=== PATIENT | male | born 1995 | race African-American/Black ===

== ENCOUNTER 2017-05-19 18:14 | Emergency (ER) | payer MEDICAID ==
[~2017-05-19] VITALS: Ht 182.9 cm; Wt 97.5 kg
[~2017-05-19 18:14] MED LIST: AMOXICILLIN500 MG ORAL; CYCLOBENZAPRINE10 MG ORAL; DEBROX15 M1 OT; IBUPROFEN600 MG ORAL; NAPROSYN500 M1 ORAL; NAPROSYN500 M1 PO; NKM
--- NOTE | 2017-05-19 18:37 | Emergency Room Report ---
History of Present Illness General Chief Complaint: Upper Respiratory Illness Source: Patient Present Illness HPI 22-year-old male presents to the emergency department complaining of 5/10 in severity sore throat, persistent dry cough, intermittent fevers and chills that her subjective x2 days. Patient denies having his flu vaccination this year however he is up-to-date with all of her vaccinations. Patient denies recent travel or ill contacts .Denies sore throat, ear pain, high fevers, lethargy, neck pain/stiffness, irritability, photophobia dehydration, N/V/D. Denies Cp, Palpitations, LOC, AMS, seizures, paresthesias, or changes in Hearing or vision , no Sudden severe IBARRA. He also reports she rash to the bilateral medial knees and thighs that presented several days prior to URI symptoms. Patient denies fevers or chills he reports he applied a cream that his mother gave him and symptoms almost completely resolved. Denies lesions elsewhere on the body. Does report new Pants that are somewhat tight but he also did not wash prior to wearing. Denies lesions/rashes elsewhere on the body. Denies new medications or body washes or creams. Denies swelling of the lips, tongue , throat or airway. Denies wheezing, or shortness of breath. Denies recent travel, recent illness or ill contacts. denies blisters, oral lesions, or sloughing of the skin. Allergies: Coded Allergies: No Known Allergies (Unverified , 08/10/14) Patient History Past Medical History: see triage record Past Surgical History: none Pertinent Family History: none Reviewed Nursing Documentation: PMH: Agreed, PSxH: Agreed Nursing Documentation-PM Past Medical History: No Stated History Review of Systems All Other Systems: negative except mentioned in HPI Physical Exam Vital Signs Date Time Temp Pulse Resp B/P (MAP) Pulse Ox O2 Delivery O2 Flow Rate FiO2 05/19/17 18:17 98.1 67 16 124/83 96 Room Air Sp02 EP Interpretation: reviewed, normal General Appearance: no apparent distress, alert, GCS 15, non-toxic Head: normocephalic, atraumatic ENT: hearing grossly normal, normal voice, TMs + canals normal, uvula midline, nasal congestion, pharyngeal erythema - no exudates Neck: full range of motion Respiratory: chest non-tender, lungs clear, normal breath sounds, speaking full sentences Cardiovascular #1: regular rate, rhythm Musculoskeletal: back normal, gait/station normal, normal range of motion, non- tender Neurologic: alert, oriented x3, responsive, motor strength/tone normal, sensory intact, speech normal, grossly normal Psychiatric: judgement/insight normal Skin: normal color, warm/dry, well hydrated, rash - Some excoriations noted to the medial thighs however no erythema, no swelling no blisters or vesicles . Lymphatic: no adenopathy Medical Decision Making PA Attestation Dr. card is my supervising Physician whom patient management has been discussed with. Diagnostic Impression: Primary Impression: Upper respiratory infection Qualified Codes: J06.9 - Acute upper respiratory infection, unspecified Additional Impression: Dermatitis ER Course 22-year-old male presents to the emergency department complaining of 5/10 in severity sore throat, persistent dry cough, intermittent fevers and chills that her subjective x2 days. Patient denies having his flu vaccination this year however he is up-to-date with all of her vaccinations. Patient denies recent travel or ill contacts .Denies sore throat, ear pain, high fevers, lethargy, neck pain/stiffness, irritability, photophobia dehydration, N/V/D. Denies Cp, Palpitations, LOC, AMS, seizures, paresthesias, or changes in Hearing or vision , no Sudden severe IBARRA. He also reports she rash to the bilateral medial knees and thighs that presented several days prior to URI symptoms. Patient denies fevers or chills he reports he applied a cream that his mother gave him and symptoms almost completely resolved. Denies lesions elsewhere on the body. Does report new Pants that are somewhat tight but he also did not wash prior to wearing. Denies lesions/rashes elsewhere on the body. Denies new medications or body washes or creams. Denies swelling of the lips, tongue , throat or airway. Denies wheezing, or shortness of breath. Denies recent travel, recent illness or ill contacts. denies blisters, oral lesions, or sloughing of the skin. Ddx considered but are not limited to URI, pneumonia, PE, strep pharyngitis, meningitis, dermatitis, tinea Vital signs: Pt. is afebrile, the remaining VS are WNL H&PE are most consistent with URI- no meningeal signs, oropharynx is not involved, no evidence of bacterial infection at this time. - Some excoriations noted to the medial thighs however no erythema, no swelling no blisters or vesicles I suspect rash was due to some form of dermatitis.. ORDERS: none required at this time, the diagnosis is clinical ED INTERVENTIONS: None required at this time. --PT. EDUCATION: Discussed antibiotic resistance with inappropriate prescribing of antibiotics for viral illnesses. Discussed signs and symptoms to indicate viral illness versus bacterial illness. DISCHARGE: At this time pt. is stable for d/c to home. Will provide printed patient care instructions, and any necessary prescriptions. Care plan and follow up instructions have been discussed with the patient prior to discharge. Last Vital Signs Date Time Temp Pulse Resp B/P (MAP) Pulse Ox O2 Delivery O2 Flow Rate FiO2 05/19/17 18:17 98.1 67 16 124/83 96 Room Air Disposition: HOME, SELF-CARE Condition: Stable Scripts Diphenhydramine Hcl (BENADRYL ALLERGY) 25 Mg Tablet 25 MG PO Q6HR, #20 TAB Prov: Ophelia Gorman 05/19/17 Hydrocortisone (Hydrocortisone Cream 2.5%) Y Cream.appl 1 APPLIC TP BID, #28.3 GM Prov: Ophelia Gorman 05/19/17 Benzonatate* (TESSALON PERLE*) 100 Mg Capsule 100 MG ORAL THREE TIMES A DAY, #20 PERLE Prov: Ophelia Gorman 05/19/17 Codeine/Promethazine Hcl* (PROMETHAZINE-CODEINE SYRUP*) 118 Ml Syrup 5 ML ORAL Q6H Y for For Cough, #120 ML 0 Refills Prov: Ophelia Gorman 05/19/17 Departure Forms: Return to School Return to School On: May 20, 2017 School Release Restrictions: None Other School Release Restrictions: please excuse for 05/18/17 Return to Full Activity: May 20, 2017 Patient Instructions: Upper Respiratory Infection, Adult Additional Instructions: Take medications as directed. Follow up with a Primary Care Provider in 3-5 days, even if your symptoms have resolved. --Please review list of primary care clinics, if you do not already have a primary care provider Return sooner to ED if new symptoms occur, or current symptoms become worse. Do not drink alcohol, drive, or operate heavy machinery while taking Cough Syrup as this may cause drowsiness. - Please note that this Emergency Department Report was dictated using [employer] business manager technology software, occasionally this can lead to erroneous entry secondary to interpretation by the dictation equipment. Ophelia Gorman May 19, 2017 18:37
[2017-05-19 18:47] VITALS: BP 124/83
[2017-05-19] MEDS ORDERED: HYDROCORTISONE30 G2 TP (18:57)
[2017-05-19] MEDS ORDERED: BENADRYL ALLERG25 M1 PO (18:57)
[2017-05-19] MEDS ORDERED: TESSALON PERLE100 MG ORAL (18:57)
[2017-05-19] MEDS ORDERED: PROMETHAZINE-C118 M1 ORAL (18:57)
[2017-05-19 19:01] VITALS: BP 124/83
== END 2017-05-19 19:08 | disposition home or self-care (01) ==
LOC: EMR 18:52
DX: J06.9 Acute upper respiratory infection, unspecified (principal); L30.9 Dermatitis, unspecified
CPT/HCPCS: 99283

== ENCOUNTER 2018-01-05 23:54 | Emergency (ER) | payer MEDICAID ==
[~2018-01-05] VITALS: Ht 185.4 cm; Wt 93.4 kg
[~2018-01-05 23:54] MED LIST changes: +BENADRYL ALLERG25 M1 PO; +HYDROCORTISONE30 G2 TP; +PROMETHAZINE-C118 M1 ORAL; +TESSALON PERLE100 MG ORAL
[2018-01-06] MEDS ORDERED: IBUPROFEN600 MG ORAL (00:50)
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
[2018-01-06 00:55] VITALS: BP 132/84
[2018-01-06 00:57] VITALS: BP 132/68
== END 2018-01-06 00:57 | disposition home or self-care (01) ==
LOC: EMR 01-06 00:18
DX: S16.1XXA Strain of muscle, fascia and tendon at neck level, initial encounter (principal); S80.01XA Contusion of right knee, initial encounter; S50.311A Abrasion of right elbow, initial encounter; M54.9 Dorsalgia, unspecified; V43.62XA Car passenger injured in collision with other type car in traffic accident, initial encounter; Y92.410 Unspecified street and highway as the place of occurrence of the external cause
CPT/HCPCS: 99283

== ENCOUNTER 2019-03-08 18:34 | Emergency (ER) | payer MEDICAID ==
[~2019-03-08] VITALS: Ht 185.4 cm; Wt 95.3 kg
[2019-03-08] MEDS ORDERED: NKM (18:40)
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
[2019-03-08 18:51] VITALS: BP 147/102
--- NOTE | 2019-03-08 18:53 | NUR ---
ED Nurse Note: ERMD at bedside
--- NOTE | 2019-03-08 19:09 | NUR ---
HAND-OFF: Report given to MAUDE Bryan.
[2019-03-08] MEDS ORDERED: IBUPROFEN600 MG ORAL (19:11)
[2019-03-08] MEDS ORDERED: LIDODERM700 M1 TOPIC (19:11)
[2019-03-08] MEDS ORDERED: ROBAXIN-750750 MG PO (19:11)
[2019-03-08 19:19] VITALS: BP 147/102
--- NOTE | 2019-03-08 19:20 | NUR ---
ED Nurse Note: Pt cleared by health care Provider for discharge. DC instructions/prescription was given and explained to pt and verbalized understanding of teachings. All medical deviecs such as ID band removed. Pt is AAO x4, ambulatory and left with all personal belongings.
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
== END 2019-03-08 19:20 | disposition home or self-care (01) ==
LOC: EMR 19:20
DX: S16.1XXA Strain of muscle, fascia and tendon at neck level, initial encounter (principal); V43.62XA Car passenger injured in collision with other type car in traffic accident, initial encounter; Y92.481 Parking lot as the place of occurrence of the external cause
CPT/HCPCS: 99282

== ENCOUNTER 2019-10-08 16:32 | Emergency (ER) | payer MEDICAID ==
[~2019-10-08] VITALS: Ht 185.4 cm; Wt 95.3 kg
[~2019-10-08 16:32] MED LIST changes: +LIDODERM700 M1 TOPIC; +ROBAXIN-750750 MG PO
--- NOTE | 2019-10-08 17:00 | NUR ---
ED Nurse Note:pt. came with c/o chest pain 5/10, VSS, A/Ox4 placed on outreach librarian
--- NOTE | 2019-10-08 17:19 | NUR ---
ED Nurse Note:ekg done blood and urine sent to labs
[2019-10-08 17:38] VITALS: BP 131/74
[2019-10-08 17:40] LABS: APPEARANCE,URINE CLEAR; BILIRUBIN, URINE NEGATIVE (NEGATIVE); COLOR,URINE PALE YELLOW; GLUCOSE, URINE (UA) NEGATIVE (NEGATIVE); KETONES,URINE NEGATIVE (NEGATIVE); LEUKOCYTE ESTERASE ,URINE NEGATIVE (NEGATIVE); NITRITE,URINE NEGATIVE (NEGATIVE); PH,URINE 6 (4.5-8.0); PROTEIN,URINE NEGATIVE (NEGATIVE); UROBILINOGEN,URINE NORMAL MG/DL (0.0-1.0)
[2019-10-08 17:55] LABS: ANION GAP 9 mmol/L (5-15); BASOPHILS % (AUTO) 2.1 % (0.0-2.0); BLOOD UREA NITROGEN 12 mg/dL (7-18); CALCIUM 8.3 MG/DL (8.5-10.1); CARBON DIOXIDE 25 MMOL/L (21-32); CHLORIDE 105 MMOL/L (98-107); CREATININE 1.3 MG/DL (0.55-1.30); HEMATOCRIT 44.3 % (42.0-52.0); HEMOGLOBIN 14.4 G/DL (14.2-18.0); LYMPHOCYTES % (AUTO) 35.4 % (20.0-45.0); MEAN CORPUSCULAR VOLUME 87 FL (80-99); MONOCYTES % (AUTO) 14.5 % (1.0-10.0); NEUTROPHILS % (AUTO) 46.9 % (45.0-75.0); PLATELET COUNT 196 K/UL (150-450); POTASSIUM 3.7 MMOL/L (3.5-5.1); RED CELL DISTRIBUTION WIDTH 13.6 % (11.6-14.8); SODIUM 139 MMOL/L (136-145); WHITE BLOOD COUNT 3.5 K/UL (4.8-10.8)
--- NOTE | 2019-10-08 17:59 | Emergency Room Report ---
History of Present Illness General Chief Complaint: Chest Pain Source: Patient (Lou Reyes) Present Illness HPI 24-year-old male with no signal past medical history here complaining of intermittent chest pain that is been going on for several months however today started getting really sharp and 10 out of 10. Patient also reports that it radiates to the left side however denies any left arm radiation denies any headache and dizziness, hypertension history, tobacco smoke, marijuana use, recent alcohol intake. Complains of palpitation today. Denies any blurry vision. Denies any abdominal pain, nausea vomiting, shortness of breath and headache. Denies any URI symptoms. Has not taken medication for symptom relief. Blood pressure slightly elevated however vital signs otherwise within normal limits. (Lou Reyes) Allergies: Coded Allergies: No Known Allergies (Unverified , 08/10/14) COVID-19 Screening Contact w/high risk pt: No Recent Travel to affected area: No Experienced COVID-19 symptoms?: No COVID-19 Testing performed [employer] LAB[employer]ER: No (Lou Reyes) Patient History Past Medical History: see triage record Past Surgical History: none Pertinent Family History: none Immunizations: UTD Reviewed Nursing Documentation: PMH: Agreed; PSxH: Agreed (Lou Reyes) Nursing Documentation-PMH Past Medical History: No Stated History (Lou Reyes) Review of Systems All Other Systems: negative except mentioned in HPI (Lou Reyes) Physical Exam Vital Signs Date Time Temp Pulse Resp B/P (MAP) Pulse Ox O2 Delivery O2 Flow Rate FiO2 10/08/19 16:57 99.0 77 20 157/96 (116) 100 Room Air Sp02 EP Interpretation: reviewed, abnormal - elevated BP General Appearance: no apparent distress, alert, GCS 15, non-toxic Head: normocephalic, atraumatic Eyes: bilateral eye normal inspection, bilateral eye PERRL ENT: hearing grossly normal, normal pharynx, no angioedema, normal voice Neck: full range of motion, supple/symm/no masses Respiratory: chest non-tender, lungs clear, normal breath sounds, no rhonchi, no retraction, speaking full sentences Cardiovascular #1: regular rate, rhythm, no edema, no murmur Cardiovascular #2: 2+ carotid (R), 2+ carotid (L), 2+ radial (R), 2+ radial (L) , 2+ dorsalis pedis (R), 2+ dorsalis pedis (L) Gastrointestinal: normal bowel sounds, non tender, soft, non-distended, no guarding, no rebound Rectal: deferred Genitourinary: no CVA tenderness Musculoskeletal: back normal, no calf tenderness Neurologic: alert, motor strength/tone normal, oriented x3, sensory intact, responsive, speech normal Psychiatric: judgement/insight normal, memory normal, mood/affect normal, no suicidal/homicidal ideation Skin: no rash Lymphatic: no adenopathy (Lou Reyes) Medical Decision Making PA Attestation All diagnoses and treatment plans were reviewed and discussed with my supervising physician Dr. Shelby (Lou Reyes) Diagnostic Impression: Primary Impression: Chest pain ER Course 24-year-old male with no signal past medical history here complaining of intermittent chest pain that is been going on for several months however today started getting really sharp and 10 out of 10. Patient also reports that it radiates to the left side however denies any left arm radiation denies any headache and dizziness, hypertension history, tobacco smoke, marijuana use, recent alcohol intake. Complains of palpitation today. Denies any blurry vision. Denies any abdominal pain, nausea vomiting, shortness of breath and headache. Denies any URI symptoms. Has not taken medication for symptom relief. Blood pressure slightly elevated however vital signs otherwise within normal limits. Ddx considered but are not limited to: [place], Angina, COPD, GERD, Vital signs: are WNL, pt. is afebrile H&PE are most consistent with chest pain ORDERS: EKG, Chest XR, cardiac labs(troponin, CBC, CMP, BNP), motrin ED INTERVENTIONS:NS bolus DISCHARGE: At this time pt. is stable for d/c to home. Will provide printed patient care instructions, and any necessary prescriptions. Care plan and follow up instructions have been discussed with the patient prior to discharge. Take medication as directed, follow-up with your primary doctor for referral to liner helper and further evaluation, avoid smoking marijuana, if worsening symptoms return to the emergency room. (Lou Reyes) EKG Diagnostic Results Rate: normal Rhythm: NSR ST Segments: no acute changes Other Impression No acute ST changes (Lou Reyes) Chest X-Ray Diagnostic Results Chest X-Ray Diagnostic Results : Chest X-Ray Ordered: Yes # of Views/Limited/Complete: 1 View Indication: Chest Pain EP Interpretation: Yes PA Xray: Interpretation reviewed, by supervising MD, and agrees with findings. Interpretation: no consolidation, no effusion, no pneumothorax Impression: No acute disease Electronically Signed by: Lou Luna PA-C (Lou Reyes) Chest X-Ray Diagnostic Results : Electronically Signed by: Shar Ontiveros documentation of Xray reviewed by me and is accurate, Alejandro Shelby MD (Alejandro Shelby MD) Last Vital Signs Date Time Temp Pulse Resp B/P (MAP) Pulse Ox O2 Delivery O2 Flow Rate FiO2 10/08/19 16:57 99.0 77 20 157/96 (116) 100 Room Air (Lou Reyes) Disposition: HOME, SELF-CARE Condition: Stable Scripts Ibuprofen* (MOTRIN*) 600 Mg Tablet 600 MG ORAL Q8H PRN for FOR PAIN, #30 TAB 0 Refills Prov: Lou Reyes 10/08/19 Referrals: NON PHYSICIAN (PCP) Patient Instructions: Nonspecific Chest Pain Additional Instructions: Take medication as directed, follow-up with your primary doctor for referral to liner helper and further evaluation, avoid smoking marijuana, if worsening symptoms return to the emergency room. Lou Reyes Oct 08, 2019 17:58 Alejandro Shelby MD Oct 10, 2019 03:19
[2019-10-08 18:08] LABS: ALANINE AMINOTRANSFERASE 19 U/L (12-78); ALBUMIN 3.7 G/DL (3.4-5.0); ALBUMIN/GLOBULIN RATIO 1.1 (1.0-2.7); ALKALINE PHOSPHATASE 50 U/L (46-116); ASPARTATE AMINO TRANSFERASE 21 U/L (15-37); BILIRUBIN,TOTAL 1.3 MG/DL (0.2-1.0)
[2019-10-08 18:09] LABS: BILIRUBIN,DIRECT 0.3 MG/DL (0.0-0.3)
--- NOTE | 2019-10-08 18:15 | Diagnostic Imaging Report ---
Indication: Reason For Exam: PAIN Technique: Single AP view of the chest. Comparison: None. Findings: The cardiomediastinal silhouette is within normal limits. There is no focal consolidation, pneumothorax or pleural effusion. Osseous structures demonstrate no acute abnormality. IMPRESSION: No radiographic evidence of acute cardiopulmonary disease.
[2019-10-08] MEDS ORDERED: IBUPROFEN600 M1 ORAL (18:16)
[2019-10-08 18:30] VITALS: BP 139/76
--- NOTE | 2019-10-08 18:30 | NUR ---
ER DISCHARGE NOTE: Patient is cleared to be discharged per ERMD, pt is aox4, on room air, with stable vital signs. pt was given dc and prescription instructions, pt was able to verbalize understanding, pt id band and iv site removed without complications. pt is able to ambulate with steady gait. pt took all belongings.
== END 2019-10-08 18:46 | disposition home or self-care (01) ==
LOC: EMR 16:45
DX: R07.9 Chest pain, unspecified (principal)
CPT/HCPCS: 36415; 71045; 80053; 80307; 81003; 82248; 83880; 84484; 85025; 85610; 85730; 93005; Z7502; 99284